=== PATIENT | male | born 1970 | race Caucasian/White ===

== ENCOUNTER 2021-07-20 10:01 | Emergency (ER) | payer OTHER, SELFPAY ==
--- NOTE | 2021-07-20 10:06 | ED.URI ---
HPI - URI/Sore Throat General Chief Complaint: Upper Respiratory Infection Stated Complaint: COUGH/CONGESTION/CHILLS/BODY ACHES Time Seen by Provider: 07/20/21 10:07 Source: patient and RN notes reviewed Mode of arrival: ambulatory Limitations: no limitations History of Present Illness HPI Narrative: 50-year-old male presents to the [facility] with complaints of cough, congestion, chills, body aches and fatigue. Patient reports a productive cough with mucus. Started Thursday or Thursday. Also states that he did have 2+ tests on for COVID-19. Patient states he is fully vaccinated with [employer] in February 2021 was a second vaccine. Has a history of high cholesterol, hypertension. Patient states that he has an appointment coming up this week with his primary care provider for evaluation of his blood pressure. States at home monitoring has been 140 - 150s over 90s. Patient denies fevers. No chest pain or shortness of breath. No abdominal pain. Related Data Allergies Allergy/AdvReac Type Severity Reaction Status Date / Time lisinopril AdvReac Mild unkown Verified 12/10/20 15:18 Review of Systems Review of Systems: All systems reviewed & are unremarkable except as noted in HPI and below Constitutional: Constitutional: Reports as per HPI, Reports chills, Reports fatigue and Denies fever(s) Eyes: Eyes: Reports no additional eye complaints ENT: Reports as per HPI, Denies dizziness and Reports nasal congestion Cardiovascular: Cardiovascular: Reports no additional cardiovascular complaints, Denies chest pain and Denies radiating jaw, neck or arm pain Respiratory: Respiratory: Reports as per HPI, Reports cough, Denies dyspnea and Denies wheezing Gastrointestinal: Gastrointestinal: Reports no additional gastrointestinal complaints, Denies abdominal pain, Denies nausea and Denies vomiting Musculoskeletal: Musculoskeletal: Reports as per HPI and Reports myalgias Integumentary/Breasts: Skin/Breast: Reports system reviewed and no additional complaints, except as docu Neurologic: Reports system reviewed and no additional complaints, except as documented Psychiatric: Psychiatric: Reports no additional psychiatric complaints Allergic/Immunologic: Allergic/Immunologic: Reports no additional allergic/immunologic complaints PMFSH Past Medical History Medical History Elevated glucose H/O hemorrhoids HLD (hyperlipidemia) Hypertension Surgical History Surgical History H/O hemorrhoidectomy H/O sinus surgery Family History Family History Mother Hypertension High cholesterol Grandparent Hypertension High cholesterol Heart disease Diabetes mellitus TIA (transient ischemic attack) Cerebrovascular accident Social History Social History Smoking packs per day: 0.5 Smoking cigarettes per day: 10.0 Years smoked: 23 Smoking pack-years: 11.50 Smoking status: Former smoker Tobacco type: cigarettes Smoking end date: 06/27/18 Alcohol intake: current Alcohol use details: rare Substance use: never Substance use type: does not use Gender identity (if verbalized by the patient): Male Comments At the time of my signature, I reviewed and agree with the nursing past medical, surgical, social, and family history. There is no relevant family history pertinent to the patient complaint. Exam Const: General: no acute distress Nutritional Appearance: well nourished Orientation/consciousness: patient oriented x3 HENMT: Ears: external ears normal, TM's normal bilaterally and EAC's normal General nose exam: Nasal discharge present clear and mucoid Face and sinus: normal facial exam and sinuses nontender Mouth: Yes lip normal and Yes moist mucous membranes Throat: uvula midline Eyes: Conjunctivae: conjunctivae
[2021-07-20 10:07] VITALS: BP 150/93; PULSE 78; RESP 12; TEMP 37.1; O2SAT 100
== END 2021-07-20 10:35 | disposition home or self-care (01) ==
PROVIDERS: Emergency Provider Nurse Practitioner; PCP Family Medicine
DX: U07.1 COVID-19 (principal); Z87.891 Personal history of nicotine dependence; E78.5 Hyperlipidemia, unspecified; I10 Essential (primary) hypertension
CPT/HCPCS: 87426; 99213; C9803; G0463

== ENCOUNTER 2022-12-26 18:47 | Emergency (ER) | payer OTHER, SELFPAY ==
--- NOTE | ~2022-12-26 | XR_ITS ---
EXAMINATION: XR foot LT min 3V DATE: 12/26/2022 19:10 INDICATION: Left foot injury and pain. TECHNIQUE: 4 views of left foot were obtained. COMPARISON: None. FINDINGS: Bone alignment is normal. There is a nondisplaced intra-articular transverse fracture of ba se of fifth metatarsal. 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 IMPRESSION: 1. Nondisplaced intra-articular transverse fracture of base of fifth metatarsal. Reviewed, dictated and finalized at location A. [facility] IMPRESSION: 1. Nondisplaced intra-articular transverse fracture of base of fifth metatarsal .
--- NOTE | 2022-12-26 18:59 | ED.LOWEXIN ---
HPI - Extremity Injury (Lower) General Chief Complaint: Extremity Injury, Lower Stated Complaint: lt foot injury Time Seen by Provider: 12/26/22 19:00 Source: patient, RN notes reviewed and old records reviewed Mode of arrival: ambulatory Limitations: no limitations History of Present Illness HPI Narrative: 52-year-old male presents to the [facility] with complaints of left lateral foot pain with swelling and bruising. patient reports approximately 2 hours prior to arrival he was stepping off his porch and rolled his foot. No treatment prior to arrival Related Data Allergies Allergy/AdvReac Type Severity Reaction Status Date / Time lisinopril AdvReac Mild unkown Verified 11/06/22 14:22 Review of Systems Review of Systems: All systems reviewed & are unremarkable except as noted in HPI and below Constitutional: Constitutional: Reports no additional constitutional complaints Eyes: Eyes: Reports no additional eye complaints ENT: Reports system reviewed and no additional complaints, except as documented Cardiovascular: Cardiovascular: Reports no additional cardiovascular complaints, Denies chest pain and Denies dyspnea Respiratory: Respiratory: Reports no additional respiratory complaints, Denies chest congestion, Denies cough and Denies dyspnea Gastrointestinal: Gastrointestinal: Reports no additional gastrointestinal complaints, Denies abdominal pain, Denies nausea and Denies vomiting Musculoskeletal: Musculoskeletal: Reports as per HPI Integumentary/Breasts: Skin/Breast: Reports system reviewed and no additional complaints, except as docu Neurologic: Reports system reviewed and no additional complaints, except as documented Psychiatric: Psychiatric: Reports no additional psychiatric complaints Allergic/Immunologic: Allergic/Immunologic: Reports no additional allergic/immunologic complaints PMFSH Past Medical History Medical History Elevated glucose H/O hemorrhoids HLD (hyperlipidemia) Hypertension Surgical History Surgical History H/O hemorrhoidectomy H/O sinus surgery Family History Family History Mother Hypertension High cholesterol Grandparent Hypertension High cholesterol Heart disease Diabetes mellitus TIA (transient ischemic attack) Cerebrovascular accident Social History Social History Smoking status: Former smoker Tobacco type: cigarettes Smoking end date: 06/27/18 Alcohol intake: current Drinks per week: 5 Substance use: never Substance use type: does not use Lack of Transportation: No Lack of Food: Never True Current Housing: I Have Housing Concerned About Future Housing: No Difficulty Paying Gas/Electric Bills: No Difficulty Paying for Meds: No Currently Unemployed: No Education: Master's Degree or Higher Difficulty w/ Childcare or Family Care: No Living arrangements: with family Occupation/Education: occupation Gender identity (if verbalized by the patient): Male Comments At the time of my signature, I reviewed and agree with the nursing past medical, surgical, social, and family history. There is no relevant family history pertinent to the patient complaint. Exam Const: General: cooperative, healthy appearing, comfortable, no acute distress, well developed, alert and well nourished Nutritional Appearance: well nourished and obese Orientation/consciousness: patient oriented x3 Limitations: no limitations HENMT: Head: normal to inspection Ears: hearing grossly normal bilaterally and external ears normal Face/Nose/Sinus: Normal external nose present, Normal nares present, Normal nasal mucous membranes and turbinates present and normal facial exam Face and sinus: normal facial exam Mouth: Yes Normal oral and p
[2022-12-26 19:00] VITALS: BP 144/76; PULSE 95; RESP 18; TEMP 36.9; O2SAT 98
== END 2022-12-26 19:47 | disposition home or self-care (01) ==
PROVIDERS: Emergency Provider Nurse Practitioner; PCP Family Medicine
DX: S92.355A Nondisplaced fracture of fifth metatarsal bone, left foot, initial encounter for closed fracture (principal); X50.9XXA Other and unspecified overexertion or strenuous movements or postures, initial encounter; E78.5 Hyperlipidemia, unspecified; I10 Essential (primary) hypertension
CPT/HCPCS: 29515; 73630; 99214; G0463

== ENCOUNTER 2023-07-06 14:09 | Emergency (ER) | payer OTHER, SELFPAY ==
--- NOTE | 2023-07-06 14:15 | ED.URI ---
HPI - URI/Sore Throat General Chief Complaint: Upper Respiratory Infection Stated Complaint: nasal drainage,rt earache Time Seen by Provider: 07/06/23 14:32 Source: patient and RN notes reviewed Mode of arrival: ambulatory Limitations: no limitations History of Present Illness HPI Narrative: 52-year-old male presents with concern primarily for right ear pain. Reports for a couple of days he has had sinus drainage, cough, sinus congestion. Reports ear pain kept him awake last night. He denies drainage from the ear. Reports he has chronic sinus problems. He has not taken any medications for his symptoms yet. MD elicited complaint: nasal congestion Related Data Allergies Allergy/AdvReac Type Severity Reaction Status Date / Time lisinopril AdvReac Hives Verified 07/06/23 14:32 Review of Systems Review of Systems: CONSTITUTIONAL: Denies malaise, chills, sweats, or fever. EYES: Denies visual changes, redness, or discharge. ENT: Reports rhinorrhea, congestion, sinus pain, otalgia CARDIOVASCULAR: Denies chest pain, palpitations, or edema. RESPIRATORY: Denies cough. Denies dyspnea. GASTROINTESTINAL: Denies abdominal pain, nausea, vomiting, diarrhea SKIN: Denies rash or itching. MUSCULOSKELETAL: Denies myalgia. NEUROLOGIC: Denies headache. All systems reviewed & are unremarkable except as noted in HPI and below PMFSH Past Medical History Medical History (Updated 07/06/23 @ 14:39 by Mojgan Patino NP) Ankle pain, left Elevated glucose H/O hemorrhoids HLD (hyperlipidemia) Hypertension Pes cavus of both feet Surgical History Surgical History H/O hemorrhoidectomy H/O sinus surgery Family History Family History Mother Hypertension High cholesterol Grandparent Hypertension High cholesterol Heart disease Diabetes mellitus TIA (transient ischemic attack) Cerebrovascular accident Social History Social History Smoking status: Former smoker Tobacco type: cigarettes Smoking end date: 06/27/18 Alcohol intake: current Drinks per week: 5 Substance use: never Substance use type: does not use Lack of Transportation: No Lack of Food: Never True Current Housing: I Have Housing Concerned About Future Housing: No Difficulty Paying Gas/Electric Bills: No Difficulty Paying for Meds: No Currently Unemployed: No Education: Master's Degree or Higher Difficulty w/ Childcare or Family Care: No Living arrangements: with family Occupation/Education: occupation Gender identity (if verbalized by the patient): Male Comments At time of signature, agree with nursing past medical, surgical, social and family history. There is no relevant family history pertinent to the presenting complaint Exam Narrative: GENERAL: Well-appearing, well-nourished, and in no acute distress. HEAD: Normocephalic EYES: PERRLA, conjunctivae clear ENT: Nares clear, turbinates edematous and erythematous, clear discharge. Mucous membranes moist. TM pearly velasco with dull light reflex on the right; no tragal tenderness. Oropharynx not erythematous without lesions. Tonsils not enlarged and without exudate, no drooling, no hoarseness, no trismus, uvula midline. NECK: Supple. No lymphadenopathy CHEST: Clear to auscultation, breath sounds equal. No wheezing, rhonchi, rales, or stridor. No respiratory distress, speaks in full sentences. HEART: Regular rate and rhythm. No murmur heard. SKIN: Warm, dry, no rash. NEURO: Alert and oriented x3. PSYCH: Normal mood and affect Course Course Emergency Course: Patient is aware of diagnosis, understands and agrees to treatment plan. Anticipatory guidance given. Patient agrees to follow-up as directed and is aware of reasons to seek care at the emergency department. Portions of this record may have been create
[2023-07-06 14:22] VITALS: BP 135/83; PULSE 70; RESP 18; TEMP 36.4; O2SAT 98
== END 2023-07-06 14:41 | disposition home or self-care (01) ==
PROVIDERS: Emergency Provider Nurse Practitioner; PCP Family Medicine
DX: H92.01 Otalgia, right ear (principal); I10 Essential (primary) hypertension; E78.5 Hyperlipidemia, unspecified; Z87.891 Personal history of nicotine dependence
CPT/HCPCS: 99213; G0463

== ENCOUNTER 2024-08-22 12:24 | Emergency (ER) | payer OTHER, SELFPAY ==
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
[2024-08-22 12:31] VITALS: BP 127/78; PULSE 90; RESP 16; TEMP 36.2; O2SAT 98
[2024-08-22 12:39] VITALS: BP 127/78; PULSE 90; RESP 16; TEMP 36.2; O2SAT 98
== END 2024-08-22 13:12 | disposition home or self-care (01) ==
PROVIDERS: Emergency Provider Nurse Practitioner; PCP Family Medicine
DX: S90.112A Contusion of left great toe without damage to nail, initial encounter (principal); W20.8XXA Other cause of strike by thrown, projected or falling object, initial encounter; E78.5 Hyperlipidemia, unspecified; I10 Essential (primary) hypertension; Z87.891 Personal history of nicotine dependence
CPT/HCPCS: 73630; 99213; G0463

== ENCOUNTER 2024-11-18 17:10 | Emergency (ER) | payer OTHER, SELFPAY ==
[2024-11-18 17:23] VITALS: BP 151/96; PULSE 103; RESP 18; TEMP 36.9; O2SAT 98
--- NOTE | 2024-11-18 17:38 | ED.URI ---
HPI - URI/Sore Throat General Chief Complaint: Upper Respiratory Infection Stated Complaint: ?pneumonia Time Seen by Provider: 11/18/24 18:03 Source: patient, RN notes reviewed and old records reviewed Mode of arrival: ambulatory Limitations: no limitations History of Present Illness HPI Narrative: 54-year-old male presents to the [facility] with 2 day history of cough, congestion both nasal and chest as well as body aches and fatigue. Has tried [id number] products. Patient does report being flu vaccinated this year Has tried Sudafed, Delsym Treatments prior to arrival: cold medicine Related Data Home Medications ?Medication ?Instructions ?Recorded ?Confirmed ?Last Taken ?Type cetirizine 10 mg tablet (Allergy 10 mg PO DAILY PRN Allergy Symptoms 07/08/23 10/26/24 Unknown History Relief (cetirizine)) Allergies Allergy/AdvReac Type Severity Reaction Status Date / Time lisinopril AdvReac Mild Hives Verified 10/26/24 09:33 Review of Systems Review of Systems: All systems reviewed & are unremarkable except as noted in HPI and below Constitutional: Constitutional: Reports as per HPI, Reports body ache(s) and Reports fatigue ENT: Reports system reviewed and no additional complaints, except as documented Cardiovascular: Cardiovascular: Reports no additional cardiovascular complaints, Denies chest pain and Denies dyspnea Respiratory: Respiratory: Reports as per HPI, Denies chest congestion, Reports cough and Denies dyspnea Musculoskeletal: Musculoskeletal: Reports no additional musculoskeletal complaints Integumentary/Breasts: Skin/Breast: Reports system reviewed and no additional complaints, except as docu PMFSH Past Medical History Medical History Ankle pain, left Pes cavus of both feet Elevated glucose HLD (hyperlipidemia) Hypertension H/O hemorrhoids Surgical History Surgical History H/O sinus surgery H/O hemorrhoidectomy Family History Family History Mother Hypertension High cholesterol Grandparent Hypertension High cholesterol Heart disease Diabetes mellitus TIA (transient ischemic attack) Cerebrovascular accident Social History Social History Smoking status: Former smoker Tobacco type: cigarettes Smoking end date: 06/27/18 Alcohol intake: current Drinks per week: 5 Substance use: never Substance use type: does not use Lack of Transportation: No Lack of Food: Never True Current Housing: I Have Housing Concerned About Future Housing: No Difficulty Paying Gas/Electric Bills: No Difficulty Paying for Meds: No Currently Unemployed: No Education: Master's Degree or Higher Difficulty w/ Childcare or Family Care: No Living arrangements: with family Occupation/Education: occupation Gender identity (if verbalized by the patient): Male Spiritual care concerns: No Agree to blood products: Yes Comments At the time of my signature, I reviewed and agree with the nursing past medical, surgical, social, and family history. There is no relevant family history pertinent to the patient complaint. Exam Const: General: cooperative, healthy appearing, comfortable, no acute distress, well developed, alert and well nourished Nutritional Appearance: well nourished Orientation/consciousness: patient oriented x3 Limitations: no limitations HENMT: Head: normal to inspection Ears: hearing grossly normal bilaterally, external ears normal, TM's normal bilaterally, EAC's normal, mastoids normal and no periauricular adenopathy Face/Nose/Sinus: normal facial exam and face symmetric Face and sinus: normal facial exam and face symmetric Throat: uvula midline, postnasal drainage and no uvular edema Eyes: General: appearance normal, both eyes and all related structures Neck: Neck: normal visual inspection, full ROM, no lymphadenopathy and no meningeal signs Chest: Chest palpation & inspection: normal inspection of the chest Resp: Effort & Inspection: normal respiratory effort and able to speak in complete sentences Auscultation: clear to auscultation bilaterally, no crackles, no rales, no rhonchi and no wheezes Cardio: Rate: regular rate Skin: General skin exam: normal color and no rashes or lesions noted Neuro: General: patient oriented x3, gait normal, moves all extremities and no meningeal signs Cognition (Neuro): normal cognition Speech: normal speech Gait exam (Neuro): Normal gait present Extrem: General: normal to inspection, full ROM, capillary refill normal and normal gait Psych: Appearance: grossly normal and well kempt Mental Status: mental status grossly normal Speech and movement: Normal speech and movement present and Clear speech present Affect: normal affect Attitude: cooperative Course Course Level of Care: Express Care Visit Vital Signs Vital signs: Vital Signs Temperature 98.4 F 11/18/24 17:23 Pulse Rate 103 H 11/18/24 17:23 Respiratory Rate 18 11/18/24 17:23 Blood Pressure 151/96 H 11/18/24 17:23 Pulse Oximetry 98 11/18/24 17:23 Oxygen Delivery Room Air 11/18/24 17:23 Temperature 98.4 F 11/18/24 17:23 Pulse Rate 103 H 11/18/24 17:23 Respiratory Rate 18 11/18/24 17:23 Blood Pressure 151/96 H 11/18/24 17:23 Pulse Oximetry 98 11/18/24 17:23 Oxygen Delivery Room Air 11/18/24 17:23 Reviewed MDM - URI/Sore Throat MDM Narrative Medical decision making narrative: Patient sitting comfortably in exam room. Nontoxic, vitals stable. Patient in no acute distress. Blood pressure is elevated, patient currently being treated for blood pressure. Patient influenza A positive. COVID is negative Patient appropriate for outpatient treatment Discharge instructions reviewed with patient, as well as provided in writing per nursing staff. The instructions also include specific and strict return/GO TO THE ER as well as f/u information. All questions have been answered, and the patient deny any further questions with discharge and discharge plan. Some parts of this dictation were generated by voice recognition software and may contain typographical and/or grammatical inaccuracies. Differential Diagnosis Differential diagnosis: Likely upper respiratory infection, otitis media, sinusitis, viral infection and influenza Lab Data Labs: Lab Results 11/18/24 Range/Units 18:17 POC Influenza A Ag Positive (Negative) POC Influenza B Ag Negative (Negative) POC SARS CoV-2 Ag Negative (Negative) Reviewed Critical Care Time Critical Care Time Critical Care Time: No Discharge Plan Discharge Clinical Impression: Influenza A Patient Disposition: Home, Self-Care Condition: Stable Instructions: Antibiotic Form, Influenza (ED) Additional Instructions: Your rapid COVID test were negative Your rapid flu test was positive for influenza A Your symptoms are due to a viral illness, which is not treated with antibiotics. Typically viral infections last 7-10 days, can linger for couple of weeks. It is very important to treat your symptoms. Drink plenty of water, Gatorade, Pedialyte, ice pops or Jell-O. -Alternate Tylenol and Motrin per package directions for fever or pain. You can alternate every 4 hours -Antihistamine medication such as Benadryl at night and Zyrtec/Claritin/Radha during the day can help improve symptoms. -doing daily nasal irrigations can help relieve pressure your sinuses. Things like a Neti pot -Use Flonase twice a day for 5 days then daily to help reduce the inflammation and dry up your sinuses. -You can also use Mucinex. Be sure to drink plenty of water with this medication at least 8 ounces with every dose and it is important to drink 8 to 10 glasses of water per day. Water is a natural decongestant -Eat and drink things that are easy to swallow, like tea or soup, or popsicles. -Oral rinses such as: Salt water gargles and/or may use topical anesthetic (eg. Chloraseptic spray) or lozenges to relieve dryness or throat pain). -Frequent hand washing or hand linux system engineer is one of the best ways to prevent spread of infection. -Using a vaporizer or humidifier at night will also help thin secretions and help with coughing up phlegm. -Follow up with primary care provider in 7-10 days if condition is not improving - For new or worsening symptoms go directly to the nearest ER Patient Language: Congolese Prescriptions: No Action cetirizine [Allergy Relief (cetirizine)] 10 mg tablet 10 mg PO DAILY PRN (Reason: Allergy Symptoms) hydrochlorothiazide 12.5 mg tablet 12.5 mg PO DAILY Qty: 90 2RF atenolol 100 mg tablet See Rx Instructions .ROUTE .COMPLEX Qty: 90 2RF Dose Instruction: TAKE 1 TABLET BY MOUTH DAILY Rx Instructions: TAKE 1 TABLET BY MOUTH DAILY Follow-up/Referrals: Pamela Smiley MD [Primary Care Provider] - ([facility] follow-up Blood pressure check, 151-96) Stand Alone Forms: Work/School Release IP Time of Disposition: 18:14
[2024-11-18 18:19] LABS: EDCOVIDSCREEN Negative (Negative); EDINFLUASCREEN Positive (Negative); EDINFLUBSCREEN Negative (Negative)
== END 2024-11-18 18:23 | disposition home or self-care (01) ==
PROVIDERS: Emergency Provider Nurse Practitioner; PCP Family Medicine
DX: J10.1 Influenza due to other identified influenza virus with other respiratory manifestations (principal); I10 Essential (primary) hypertension; E78.5 Hyperlipidemia, unspecified; Z87.891 Personal history of nicotine dependence; Z20.822 Contact with and (suspected) exposure to COVID-19
CPT/HCPCS: 87426; 87804; 99212; G0463

== ENCOUNTER 2025-03-14 08:57 | Outpatient (CLI) | payer OTHER, SELFPAY ==
--- NOTE | ~2025-03-14 | XR_ITS ---
AP view of the pelvis and AP and lateral views of the bilateral hips Clinical history: Pain Findings: No acute fracture or dislocation is seen. Osseous alignment is anatomic. Bilateral hip and SI joint spaces are preserved. Soft tissues are unremarkable. Impression: No significant abnormality is seen. Reviewed, dictated and finalized at [facility]. Impression: No significant abnormality is seen.
--- NOTE | ~2025-03-14 | XR_ITS ---
Lumbosacral Spine: AP, oblique, and lateral views Clinical History: Pain Findings: The normal lordotic curve is maintained. The vertebral bodies and posterior elements are i ntact. The intervertebral disc spaces are preserved. There is advanced facet arthropathy from L4 thr ough S1. The sacroiliac joints are normally outlined. Impression: Advanced facet arthropathy at the lower lumbar spine. Reviewed, dictated and finalized at [facility]. Impression: Advanced facet arthropathy at the lower lumbar spine.
== END 2025-03-14 08:58 | disposition home or self-care (01) ==
PROVIDERS: PCP Family Medicine; Visit Provider Family Medicine
DX: M47.816 Spondylosis without myelopathy or radiculopathy, lumbar region (principal); M25.551 Pain in right hip; M25.552 Pain in left hip
CPT/HCPCS: 72110; 73521